=== PATIENT | male | born 1990 | race Caucasian/White ===

== ENCOUNTER 2020-05-16 23:32 | Emergency (ER) | payer SELFPAY ==
[2020-05-16 23:37] VITALS: BP 178/100; PULSE 115; RESP 18; TEMP 37.3; O2SAT 97; BMI 39.0
--- NOTE | 2020-05-16 23:38 | ED_ITS ---
HPI - Male Genitourinary General: Chief complaint: Urogenital-Male Stated complaint: swollen testicles Time Seen by Provider: 05/16/20 23:37 History of Present Illness: HPI Narrative: 29-year-old male patient presents to the emergency department with 1 month history of area of drainage on his right testicle, states right testicle stopped draining several weeks ago and thought was improving.. He reports past 3 days, increased swelling of the testicle with pain. He reports difficulty walking secondary to pain. He denies history of MRSA. He denies history of STD. MD Complaint: testicle pain and testicle swelling Onset (ago): month(s) (1) Duration: progressively worsening Location: right testicle Radiation: right testicle and right inguinal region Severity: moderate Severity scale (1-10): 6 Quality: aching and dull Relieving factors: rest Exacerbating factors: movement Associated symptoms: Reports other (Hot flashes, chills); Deny dysuria, nausea or vomiting Review of Systems General: Reports: 10 or more systems reviewed and unremarkable except in HPI and below Const: Denies: fever(s), chills or diaphoresis Eyes: Denies: blurry vision or eye redness ENMT: Denies: throat pain, dental pain or disequilibrium Card: Denies: chest pain, palpitations or irregular heart rhythm Resp: Denies: dyspnea, productive cough, non-productive cough or wheezing GI: Denies: abdominal pain, nausea or vomiting : Reports: testicular pain and scrotal swelling; Denies: difficulty urinating, dysuria, urinary urgency or difficulty starting urination Musc: Denies: neck pain or back pain Skin/Breast: Denies: rash or pruritus Neuro: Denies: headache(s), weakness in extremities or behavioral changes José Luis/Lymph: Denies: easy bruising Physical Exam Const: COMMON NORMALS: no acute distress, patient oriented x3, healthy appearing and alert GENERAL APPEARANCE: cooperative, comfortable and well hydrated HENMT: COMMON NORMALS: normocephalic, Normal external nose present and moist oral mucous membranes HEAD & SCALP: normocephalic NOSE: Normal external nose present Eye: COMMON NORMALS: Equal, round and reactive pupils present and EOMs intact bilaterally GENERAL EYE: appearance normal, both eyes and all related structures PUPIL: Yes Equal, round and reactive pupils present Neck/C-Spine: COMMON NORMALS: full ROM and no lymphadenopathy GENERAL: Yes normal visual inspection and Yes trachea midline CERVICAL SPINE: Yes cervical ROM normal Lymph: LYMPHATIC: no lymphadenopathy noted Chest: COMMONS NORMALS: normal inspection of the chest Resp: COMMON NORMALS: normal respiratory effort and clear to auscultation bilaterally AUSCULTATION: clear to auscultation bilaterally Cardio: COMMON NORMALS: regular rhythm, S1 normal heart sound present and S2 normal heart sound present RHYTHM: regular rhythm HEART SOUNDS: S1 normal heart sound present and S2 normal heart sound present GI: COMMON NORMALS: Normal to inspection, nondistended, normoactive bowel sounds present, Soft to palpation and non-tender INSPECTION: Yes normal to inspection PALPATION: Yes Soft to palpation : COMMON NORMALS: Yes no CVA tenderness BLADDER/KIDNEY EXAM: Yes no CVA tenderness MALE GROIN/PERINEUM EXAM: Yes inguinal lymphadenopathy (right) PENIS: circumcised, no ecchymosis and not edematous MEATUS: meatus normal and no meatla discharge SCROTUM: Yes Scrotal tenderness present (right scotum), Yes erythematous Scrotal erythema laterality: bilateral, Yes scrotal swelling Scrotal swelling laterality: right Scrotal swelling consistent with: other (cellulitis) and Yes other (small scab to the right testicle) TESTES: Yes testicular lie normal (on the left, difficult to evaluate right due to induration and swelling) Back/Pelvis: COMMON NORMALS: no CVA tenderness and thoracic and lumbar spine normal to inspection Extremity: COMMON NORMALS: normal to inspection and capillary refill normal Neuro: COMMON NORMALS: patient oriented x3 and no focal motor deficits SENSORIUM/ORIENTATION: Yes alert Psych: COMMON NORMALS: mental status grossly normal, Normal thought process present and cooperative ACTIVITY/MOTOR BEHAVIOR: Yes appropriate eye contact THOUGHT PROCESS: Normal thought process present Skin: COMMON NORMALS: no rashes or lesions noted and turgor normal GENERAL SKIN EXAM: no rashes or lesions noted and turgor normal Procedures Abscess I/D Site: scrotum Side (if applicable): right Local Anesthetic: lidocaine 1% Amount of anesthesia used (mL): 6 Technique: incised with #11 blade Amount of fluid expressed (mL): 2 Irrigation: Yes Packing used?: none Course ED course: 29-year-old male patient presents to the emergency department with right scrotal abscess. IV antibiotics were administered here in the emergency room, attempt for incision and drainage unsuccessful, Dr. Subramanian contacted, case discussed, patient will follow up with Dr. Subramanian's office in the next 24 to 48 hours. Discussion with patient regarding worsening symptoms such as nausea vomiting, fever or chills or streaking of erythema to the leg or up the abdomen occurs he is to return to the emergency department immediately. He was also counseled on necessity to follow-up with Dr. Subramanian due to possibility of testicular involvement if left without follow-up. Case discussed with collaborative physician, Dr. Wheatley, serology results and ultrasound results discussed along with plan of care. No further orders. Prescription of tramadol signed by Dr. Wheatley for pain control. Consultations: Consultation #1: Dr Subramanian -via phone, case discussed along with ultrasound results of right-sided scrotal abscess of 1.9 x 2.1 cm with mild epididymitis on the right, antibiotic therapy discussed along with results of serologic testing here in the ED. Advised patient will need follow-up in his office this week, advised to continue antibiotic therapy with patient to contact Dr. Subramanian's office if worsening symptoms. Time: 02:45 Vital Signs: Vital signs: Vital Signs Temperature 99.2 F 05/16/20 23:37 Pulse Rate 84 05/17/20 03:07 Respiratory Rate 20 H 05/17/20 03:07 Blood Pressure 121/60 05/17/20 03:07 Pulse Oximetry 95 05/17/20 03:07 MDM - Male Lab Data: Labs: Lab Results 05/17/20 05/17/20 05/17/20 Range/Units 00:20 00:20 00:20 WBC 12.1 H (4.0-10.0) 10^3/ uL RBC 5.19 (4.1-5.3) 10^6/u L Hgb 16.8 H (11.7-16.6) g/dL Hct 47.8 (42.0-52.0) % MCV 92.1 (80-94) fL MCH 32.4 (28.0-34.0) pg MCHC 35.1 (30.0-36.0) g/dL RDW 11.8 L (12.1-15.1) % Plt Count 183 (130-400) 10^3/c mm MPV 10.3 (7.4-10.4) fL Neut % (Auto) 67.2 % Lymph % (Auto) 25.4 % Carter % (Auto) 5.6 % Eos % (Auto) 1.1 % Baso % (Auto) 0.4 % Neut # (Auto) 8.09 H (1.8-7.7) 10^3/u L Lymph # (Auto) 3.1 (0.8-4.8) 10^3/u L Carter # (Auto) 0.7 (0.2-0.9) 10^3/u L Eos # (Auto) 0.1 (0.0-0.8) 10^3/u L Baso # (Auto) 0.1 (0.0-0.1) 10^3/u L Nucleated RBC % (a uto) 0 % Nucleated RBCs # 0.0 /100WBC Sodium 134 L (136-145) mmol/L Potassium 3.6 (3.5-5.1) mmol/L Chloride 100 (98-107) mmol/L Carbon Dioxide 22 (22-29) mmol/L Anion Gap 15.6 (5-19) BUN 12 (6-20) mg/dL Creatinine 0.9 (0.7-1.2) mg/dL GFR Calculation 100.5 (90-130) mL/min Glucose 126 H (65-115) mg/dL Calculated Osmolal ity 279 L (285-295) mOsm/k g Calcium 9.8 (8.5-10.5) mg/dL Total Bilirubin 0.3 (0.15-1.2) mg/dL AST 26 (0-40) U/L ALT 57 H (0-41) U/L Alkaline Phosphata se 92 (40-130) IU/L Total Protein 7.4 (6.6-8.7) g/dL Albumin 4.3 (3.5-5.2) g/dL Globulin 3.1 (1.3-4.6) g/dL Urine Color Yellow (Yellow) Urine Appearance Clear (CLEAR) Urine pH 5 (5-7) Ur Specific Gravit y 1.020 (1.005-1.030) Urine Protein Neg (Negative) Urine Glucose (UA) Norm (Normal) Urine Ketones Negative (Negative) Urine Blood Neg (Negative) Urine Nitrate Negative (Negative) Urine Bilirubin Neg (Negative) Urine Urobilinogen 1 H (Negative) mg/dL Ur Leukocyte Le ase Negative (Negative) Imaging Data: US: Radiologist's impression: 1.9 x 2.1 cm abscess right scrotal wall, positive rt mild epididymitis Discharge Plan Discharge Patient Disposition: Home Clinical Impression: Scrotal abscess, Epididymitis, right Condition: Stable Prescriptions: New tramadol 50 mg tablet 50 mg PO Q6H PRN (Reason: pain) Qty: 14 RF: 0 doxycycline hyclate 100 mg capsule 100 mg PO BID 7 Days Qty: 14 RF: 0 clindamycin HCl 300 mg capsule 300 mg PO QID 7 Days Qty: 28 RF: 0 Discharge Orders: Discharge Order (Routine); Ordered 05/17/20 Ordered By: Yajaira Taylor Discharge Diet: Usual diet Discharge Activity: Limit activity as instructed Patient Instructions: Epididymitis (ED), Abscess (ED) Activity Restrictions/Additional Instructions: Take antibiotics until all gone Follow-up with Dr. Subramanian this week without fail You are to call Dr. Subramanian's office if you develop worsening scrotal pain or symptoms Return to the emergency department if you develop fever, chills, nausea vomiting or inability to keep antibiotics on stomach, or if you develop worsening scrotal pain. Stand Alone Forms: Work/School Release Coding Level of Care Code ED [employer] for [employer] Exam Comprehensive
[2020-05-17] VITALS (7 sets, daily range): BP systolic 110–174; BP diastolic 60–85; PULSE 76–106; RESP 18–20; O2SAT 90–98
[2020-05-17 00:29] LABS: Add Urine Microscopic? NO
[2020-05-17] MEDS: sodium chloride 0.9% 500 ML 999 ML IV (00:29)
[2020-05-17 00:35] LABS: Bilirubin Urine Neg (Negative); Blood Urine Neg (Negative); Glucose Urine UA Norm (Normal); Ketones Urine Negative (Negative); Leukocyte Esterase Urine Negative (Negative); Nitrate Urine Negative (Negative); Protein Urine Neg (Negative); Urine Appearance Clear (CLEAR); Urine Color Yellow (Yellow); Urobilinogen Urine 1 mg/dL (Negative); pH Urine 5 (5-7)
[2020-05-17 00:41] LABS: Basophils # 0.1 10^3/uL (0.0-0.1); Basophils % 0.4 %; Eosinophils # 0.1 10^3/uL (0.0-0.8); Eosinophils % 1.1 %; Hematocrit 47.8 % (42.0-52.0); Hemoglobin 16.8 g/dL (11.7-16.6); Lymphocytes # 3.1 10^3/uL (0.8-4.8); Lymphocytes % 25.4 %; Mean Corpuscular HGB Conc 35.1 g/dL (30.0-36.0); Mean Corpuscular Hemoglobin 32.4 pg (28.0-34.0); Mean Corpuscular Volume 92.1 fL (80-94); Mean Platelet Volume 10.3 fL (7.4-10.4); Monocytes # 0.7 10^3/uL (0.2-0.9); Monocytes % 5.6 %; Neutrophils # 8.09 10^3/uL (1.8-7.7); Neutrophils % 67.2 %; Nucleated Red Blood Cells % 0 %; Platelet Count 183 10^3/cmm (130-400); Red Blood Count 5.19 10^6/uL (4.1-5.3); Red Cell Distribution Width 11.8 % (12.1-15.1); White Blood Count 12.1 10^3/uL (4.0-10.0)
[2020-05-17 01:00] LABS: Alanine Aminotransferase 57 U/L (0-41); Albumin Level 4.3 g/dL (3.5-5.2); Alkaline Phosphatase 92 IU/L (40-130); Anion Gap 15.6 (5-19); Aspartate Amino Transferase 26 U/L (0-40); Blood Urea Nitrogen 12 mg/dL (6-20); Calcium 9.8 mg/dL (8.5-10.5); Carbon Dioxide 22 mmol/L (22-29); Chloride 100 mmol/L (98-107); Globulin 3.1 g/dL (1.3-4.6); Glomerular Filtration Rate 100.5 mL/min (90-130); Glucose 126 mg/dL (65-115); Osmolality Calculated 279 mOsm/kg (285-295); Potassium 3.6 mmol/L (3.5-5.1); Sodium 134 mmol/L (136-145); Total Bilirubin 0.3 mg/dL (0.15-1.2); Total Protein 7.4 g/dL (6.6-8.7)
[2020-05-17] MEDS: lidocaine 1% INJ 20 mL INJECTION (01:30)
[2020-05-17] MEDS: cefTRIAXone 1,000 MG in sodium chloride 0.9% (plus) 50 ML 100 MG IV (01:46)
[2020-05-17] MEDS: morphine 4 mg/mL SDV 1 mL IVP (01:53)
[2020-05-17] MEDS: ondansetron 2 mg/ML SDV 2 mL 4 MG IVP (01:54)
[2020-05-17] MEDS: diphenhydrAMINE 50 mg/mL SDV 1mL 25 MG IVP (01:54)
[2020-05-17] MEDS: clindamycin 900 MG/50 ML PREMIX 100 MG IV (02:39)
[2020-05-17] MEDS: azithromycin 250 mg Tablet 1000 MG PO (03:35)
--- NOTE | 2020-05-17 10:43 | DCPLANNER ---
digital account manager had message to schedule a follow up appointment for patient with Dr. Early office. digital account manager called the office of Dr. Subramanian, spoke with Janet. digital account manager gave clinic patients information, was told that it would be printed and reviewed. Clinic will call patient with appointment information.
--- NOTE | 2020-05-17 23:36 | US_ITS ---
WS: [id number] TESTICULAR ULTRASOUND HISTORY: swelling of the testicles COMPARISON: None available. TECHNIQUE: Real-time and color Doppler imaging or utilized to perform a testicular ultrasound. Right testicle: 4.3 cm x 2.2 cm x 1.9 cm. Normal size and echogenicity. No mass or torsion. Normal color Doppler is present throughout. Systolic and diastolic velocities are both present. No significant hydrocele. Right epididymis: Epididymis is enlarged and heterogeneous with increased vascularity. Marked thickening of the scrotal wall. Within the RIGHT scrotal wall is a hypoechoic low-level mass m easuring 2.0 x 1.7 cm. No increased vascularity. This hypoechoic masses within area of severe scrotal wall thickening and edema. Left testicle: 4.2 cm x 2.4 cm x 3.5 cm. Normal size and echogenicity. No mass or torsion. Normal color Doppler is present throughout. Systolic and diastolic velocities are both present. No significant hydrocele. Left epididymis: Normal epididymis with no increased vascularity. Diffuse scrotal wall thickening. US/US scrotum [id number] IMPRESSION: 1. Severe RIGHT epididymitis. 2. No testicular torsion. 3. Severe scrotal wall edema and cellulitis. 4. Nonvascular low-attenuation mass in the RIGHT scrotal wall measures 2.0 x 1 .7 cm. On the background of cellulitis and edema this is probably a scrotal wal l abscess.
--- NOTE | 2020-05-18 13:48 | DCPLANNER ---
Patient had a follow up appointment scheduled for 05.18.[address] Subramanian - patient did attend appointment.
== END 2020-05-17 04:00 | disposition home or self-care (01) ==
PROVIDERS: Emergency Provider Nurse Practitioner Family
DX: N49.2 Inflammatory disorders of scrotum (principal); N45.1 Epididymitis
CPT/HCPCS: 12345; 55100; 76870; 80053; 81003; 85025; 87070; 87075; 87205; 96365; 96367; 96375; 99283; 99284; J0696; J1200; J2270; J2405; J3490; J7040; Q0144

== ENCOUNTER → 2020-05-18 10:46 | Outpatient (BNVA) | payer SELFPAY | PROVIDERS: PCP Nurse Practitioner Family; Visit Provider Urology | DX: N45.1 Epididymitis (principal); N49.2 Inflammatory disorders of scrotum | CPT/HCPCS: 81001 ==